=== PATIENT | female | born 1985 | race Caucasian/White ===

== ENCOUNTER 2017-12-31 11:55 | Inpatient (IN) | payer OTHER ==
[~2017-12-31] VITALS: Ht 157.5 cm; Wt 90.7 kg
[~2017-12-31 11:55] MED LIST: RINGERS SOLUTION,LACTATED 1,000 ML IV ONE
[2017-12-31] MEDS ORDERED: METOCLOPRAMIDE HCL 5 MG/ML 2 ML VIAL IVP ONE (12:00)
[2017-12-31] MEDS ORDERED: CITRIC ACID/SODIUM CITRATE 30 ML SOLUTION UDCUP PO ONE (12:00)
[2017-12-31] MEDS ORDERED: CeFAZolin 2 GM/DEXTROSE 50 ML IV ONE (12:00)
[2017-12-31] MEDS ORDERED: PNV11TAB PO (12:05)
[2017-12-31 12:41] LABS: BASOPHILS % (AUTO) 1.1 % (0.0-2.0); EOSINOPHILS % (AUTO) 0.6 % (1.0-6.0); HEMATOCRIT 34.4 % (36-46); HEMOGLOBIN 11.8 g/dL (12.0-16.0); LYMPHOCYTES # (AUTO) 1.8 K/uL (1.0-4.8); LYMPHOCYTES % (AUTO) 19.1 % (22.0-44.0); MEAN CORPUSCULAR HEMOGLOBIN 29.2 pg (26.0-34.0); MEAN CORPUSCULAR HGB CONC 34.3 G/dL (31.0-37.0); MEAN CORPUSCULAR VOLUME 85 fL (80-100); MONOCYTES # (AUTO) 0.5 K/uL (0.1-1.0); MONOCYTES % (AUTO) 5.4 % (2.0-9.0); NEUTROPHILS # (AUTO) 6.9 K/uL (1.8-7.7); NEUTROPHILS % (AUTO) 73.8 % (40.0-70.0); PLATELET COUNT (AUTO) 241 K/uL (150-450); RED BLOOD CELL COUNT(AUTO) 4.04 MIL/uL (4.00-5.20); RED CELL DISTRIBUTION WIDTH 14.7 % (11.5-14.5)
[2017-12-31 12:44] VITALS: BP 114/66
[2017-12-31] MEDS ORDERED: MORPHINE SULFATE/PF 0.5 MG/ML 10 ML AMP ONE (13:18)
[2017-12-31] MEDS ORDERED: FentaNYL CITRATE-PF 100 MCG/2 ML VIAL ONE (13:18)
[2017-12-31] MEDS ORDERED: ACETAMINOPHEN 1000 MG/ISO-OSM 100 ML IV ONE (13:55)
[2017-12-31] MEDS ORDERED: MORPHINE SULFATE 10 MG/ML SYRINGE IVP PRN ×2 (14:00)
[2017-12-31] MEDS ORDERED: FentaNYL CITRATE-PF 100 MCG/2 ML VIAL IVP PRN ×4 (14:00)
[2017-12-31] MEDS ORDERED: ONDANSETRON HCL 4 MG/2 ML VIAL IVP PRN ×2 (14:00)
[2017-12-31] MEDS ORDERED: DiphenhydrAMINE HCL 50 MG/ML VIAL IM PRN (14:00)
[2017-12-31] MEDS ORDERED: DiphenhydrAMINE HCL 50 MG/ML VIAL IVP PRN ×2 (14:00)
[2017-12-31] MEDS ORDERED: MORPHINE SULFATE 2 MG/ML SYRINGE IVP PRN ×2 (14:00)
[2017-12-31] MEDS ORDERED: NALOXONE HCL 0.4 MG/ML VIAL IVP PRN (14:00)
[2017-12-31] MEDS ORDERED: MEPERIDINE HCL/PF 25 MG/0.5 ML AMP IVP PRN (14:00)
[2017-12-31] MEDS ORDERED: DEXAMETHASONE SOD PHOS 4 MG/ML VIAL IVP PRN (14:00)
[2017-12-31] MEDS ORDERED: NALBUPHINE HCL 10 MG/ML VIAL IVP PRN ×3 (14:00)
[2017-12-31] MEDS ORDERED: OXYTOCIN 30 UNITS/LACT RINGERS 500 ML IV ONE (16:04)
[2017-12-31] MEDS ORDERED: LANOLIN 7 GM OINTMENT TP PRN (16:15)
[2017-12-31] MEDS ORDERED: OxyCODONE HCL/ACETAMINOPHEN 5-325 MG TABLET PO PRN (16:15)
[2017-12-31] MEDS: RINGERS SOLUTION,LACTATED 1,000 ML IV SCH (16:49)
[2017-12-31] MEDS ORDERED: OXYGEN THERAPY IH SCH ×3 (20:00)
[2017-12-31] MEDS: MAGNESIUM HYDROXIDE SUSPENSION 30 ML UDCUP PO SCH (21:00)
[2017-12-31] MEDS: ACETAMINOPHEN 1000 MG/ISO-OSM 100 ML IV SCH (21:49)
[2018-01-01] MEDS: RINGERS SOLUTION,LACTATED 1,000 ML IV SCH (00:06)
[2018-01-01] MEDS ORDERED: OXYTOCIN 10 UNITS/ML VIAL IM ONE (05:18)
[2018-01-01] MEDS ORDERED: 0.9% SODIUM CHLORIDE 10 ML VIAL IVP ONE (05:18)
[2018-01-01] MEDS ORDERED: DiphenhydrAMINE HCL 50 MG/ML VIAL IVP ONE (05:18)
[2018-01-01] MEDS: ACETAMINOPHEN 1000 MG/ISO-OSM 100 ML IV SCH (05:23)
[2018-01-01 06:36] LABS: BASOPHILS % (AUTO) 0.1 % (0.0-2.0); EOSINOPHILS % (AUTO) 0.1 % (1.0-6.0); HEMATOCRIT 33.6 % (36-46); HEMOGLOBIN 11.8 g/dL (12.0-16.0); LYMPHOCYTES # (AUTO) 1.5 K/uL (1.0-4.8); LYMPHOCYTES % (AUTO) 12.2 % (22.0-44.0); MEAN CORPUSCULAR HGB CONC 35.2 G/dL (31.0-37.0); MEAN CORPUSCULAR VOLUME 85 fL (80-100); MONOCYTES # (AUTO) 0.7 K/uL (0.1-1.0); MONOCYTES % (AUTO) 5.2 % (2.0-9.0); NEUTROPHILS # (AUTO) 10.5 K/uL (1.8-7.7); NEUTROPHILS % (AUTO) 82.4 % (40.0-70.0); PLATELET COUNT (AUTO)-OB 216 K/uL (150-450); RED BLOOD CELL COUNT(AUTO) 3.94 MIL/uL (4.00-5.20)
[2018-01-01] MEDS: MAGNESIUM HYDROXIDE SUSPENSION 30 ML UDCUP PO SCH ×2 (08:50→21:40)
[2018-01-01] MEDS ORDERED: IBUPROFEN 800 MG TABLET ONE (11:10)
[2018-01-01] MEDS: OxyCODONE HCL/ACETAMINOPHEN 5-325 MG TABLET PO PRN ×2 (11:13→19:47)
[2018-01-01] MEDS: IBUPROFEN 800 MG TABLET PO PRN ×2 (11:36→19:47)
[2018-01-01] MEDS ORDERED: IBUPROFEN 800 MG TABLET PO PRN (16:15)
[2018-01-02] MEDS: IBUPROFEN 800 MG TABLET PO PRN ×4 (01:59→19:57)
[2018-01-02] MEDS: MAGNESIUM HYDROXIDE SUSPENSION 30 ML UDCUP PO SCH ×2 (07:53→21:00)
[2018-01-02] MEDS ORDERED: IBUP-2071 PO (10:49)
[2018-01-02] MEDS ORDERED: DSS100 PO (10:52)
[2018-01-02] MEDS ORDERED: FERR-89 PO (10:53)
[2018-01-02] MEDS: OxyCODONE HCL/ACETAMINOPHEN 5-325 MG TABLET PO PRN ×2 (12:34→19:58)
[2018-01-03] MEDS: IBUPROFEN 800 MG TABLET PO PRN ×2 (01:54→08:23)
[2018-01-03] MEDS: OxyCODONE HCL/ACETAMINOPHEN 5-325 MG TABLET PO PRN (05:47)
[2018-01-03] MEDS: MAGNESIUM HYDROXIDE SUSPENSION 30 ML UDCUP PO SCH (08:23)
== END 2018-01-03 13:55 | disposition home or self-care (01) | DRG 540 ==
LOC: 4S 11:55 → OBSVTOIN 11:55
PROVIDERS: ADMIT Obstetrics & Gynecology; ATTEND Obstetrics & Gynecology
PROC: 10D00Z1 Extraction of Products of Conception, Low, Open Approach (ICD-10-PCS; principal; 2017-12-31)
DX: O34.211 Maternal care for low transverse scar from previous cesarean delivery (principal); K66.0 Peritoneal adhesions (postprocedural) (postinfection); Z37.0 Single live birth; O99.62 Diseases of the digestive system complicating childbirth; O69.81X0 Labor and delivery complicated by cord around neck, without compression, not applicable or unspecified; Z3A.39 39 weeks gestation of pregnancy
CPT/HCPCS: 86850; 86870; 86900; 86901; 87081; J0131; J1200; J2274; J2300; J2405; J2590; J2765; J3010; J7120